=== PATIENT | female | born 1945 | race Asian ===

== ENCOUNTER 2017-10-27 19:03 | Emergency (ER) | payer SELFPAY ==
[~2017-10-27] VITALS: Ht 167.6 cm; Wt 61.4 kg
[~2017-10-27 19:03] MED LIST: DEPAKOTE 250MG250 MG PO; PHENERGAN12.5 MG/SU RC
[2017-10-27 19:15] VITALS: TEMP 98.9
[2017-10-27] MEDS ORDERED: NAPROSYN 2250 MG/TAB PO (21:24)
[2017-10-27] MEDS ORDERED: FLEXERIL5 MG PO (21:24)
[2017-10-27] MEDS ORDERED: WALKER MC (21:33)
[2017-10-27 21:44] VITALS: BP 101/58; PULSE 72
== END 2017-10-27 21:50 | disposition home or self-care (01) ==
LOC: COL.ER 19:03
DX: S33.9XXA Sprain of unspecified parts of lumbar spine and pelvis, initial encounter (principal); W18.30XA Fall on same level, unspecified, initial encounter; Y93.01 Activity, walking, marching and hiking
CPT/HCPCS: J1885